=== PATIENT | female | born 1950 ===

== ENCOUNTER 2019-09-02 05:50 | Day surgery (SDC) | payer OTHER ==
[~2019-09-02 05:50] MED LIST: ATORVASTATIN CA40 MG PO; CLONAZEPAM0.125 MG PO; PAROXETINE7.5 MG PO; SYNTHROID75 MCG PO; ZESTRIL2.5 MG PO
[2019-09-02] MEDS ORDERED: MACROBID 100 M100 MG PO (09:44)
[2019-09-02] MEDS ORDERED: ULTRACET PO (09:44)
== END 2019-09-02 12:15 | disposition home or self-care (01) ==
LOC: CIR.AMB 05:50
DX: N81.11 Cystocele, midline (principal)